=== PATIENT | male | born 1990 | race Caucasian/White ===

== ENCOUNTER 2019-02-07 01:03 | Emergency (ER) | payer SELFPAY ==
[~2019-02-07 01:03] MED LIST: IBU600 PO; LOM PO; LOR5/325 PO; MIRT-1 PO; MULT-1319 PO; OND4 PO; TRAZ50 PO
--- NOTE | 2019-02-07 01:07 | ER Report ---
History and Physical Time Seen By MD: 01:04 HPI/KIMBERLYN CHIEF COMPLAINT: Suicidal ideation HISTORY OF PRESENT ILLNESS: Patient is a 28-year-old male here with complaints of depression, alcohol intoxication, reports of taking 40-60 Tylenol tablets. Patient reports that he was having relationship issues, drink approximately 6-7 shots and subsequently took Tylenol in attempts to harm himself. Patient does have prior history of attempts at self-harm. Patient has been admitted previously to behavioral health services for similar actions. Patient reports that he took the Tylenol approximately 40 minutes prior to arrival. Patient did related that if he went home he would shoot himself with a gun. REVIEW OF SYSTEMS: Constitutional: No fever, no chills. Eyes: No discharge. ENT: No sore throat. Cardiovascular: No chest pain, no palpitations. Respiratory: No cough, no shortness of breath. Gastrointestinal: No abdominal pain, no vomiting. Genitourinary: No hematuria. Musculoskeletal: No back pain. Skin: No rashes. Neurological: No headache. Psych: Depression, SI, alcohol intoxication, reports of taking Tylenol in attempts to harm himself Allergies: Coded Allergies: No Known Allergies (Verified Allergy, Mild, 05/27/13) Home Meds Reported Medications Mirtazapine (REMERON) 15 Mg Tablet, 7.5-15 MG PO QHS, #30 2 Refills 01/17/17 Hx Smoking: Yes Smoking Status: Heavy Tobacco Smoker Exposure to Second Hand Smoke?: Yes Hx Substance Use Disorder: No Hx Alcohol Use: Yes Constitutional Vital Sign - Last 24 Hours 02/07/19 02/07/19 02/07/19 02/07/19 01:09 01:15 01:20 01:30 Temp 98.7 Pulse 59 Resp 19 B/P (MAP) 127/74 (91) 112/71 (85) 112/71 114/68 (83) Pulse Ox 91 O2 Delivery Room Air 02/07/19 02/07/19 02/07/19 02/07/19 01:33 01:45 02:00 02:15 Pulse 61 Resp 18 B/P (MAP) 114/79 (91) 114/76 (89) 114/75 (88) Pulse Ox 90 02/07/19 02/07/19 02/07/19 02/07/19 02:30 02:33 02:45 03:00 Pulse 64 Resp 24 B/P (MAP) 116/67 (83) 118/72 (87) 122/67 (85) Pulse Ox 92 02/07/19 02/07/19 02/07/19 02/07/19 03:05 03:10 03:15 03:30 Pulse 60 79 Resp 10 24 B/P (MAP) 127/69 (88) 130/72 (91) Pulse Ox 94 94 02/07/19 02/07/19 02/07/19 02/07/19 03:40 03:45 04:00 04:10 Pulse 64 64 Resp 22 15 B/P (MAP) 116/61 (79) 104/60 (75) Pulse Ox 99 90 02/07/19 02/07/19 04:15 04:20 Pulse 61 Resp 15 B/P (MAP) 107/54 (71) Pulse Ox 93 Intake and Output 02/06/19 02/06/19 02/07/19 15:02 23:02 07:02 Intake Total 2297.6 ml Output Total 800 ml Balance 1497.6 ml Physical Exam General Appearance: The patient is alert, has no immediate need for airway protection and no signs of toxicity. Intoxicated appearing, verbalizing that he took 40-60 Tylenol tablets after consuming 6-7 shots of alcohol. Eyes: Pupils equal and round no pallor or injection. ENT, Mouth: Mucous membranes are moist. Respiratory: There are no retractions, lungs are clear to auscultation. Cardiovascular: Regular rate and rhythm. [ ] Gastrointestinal: Abdomen is soft and non tender, no masses, bowel sounds normal. Neurological: Intoxicated appearing, moving all extremities Skin: Warm and dry, no rashes. Musculoskeletal: Neck is supple non tender. Extremities are nontender, nonswollen and have full range of motion. Psych: Verbalizing suicidal ideations, reports of taking Tylenol 40-60 tablets in an attempt to kill himself, reports of drinking 6-7 shots of alcohol DIFFERENTIAL DIAGNOSIS: After history and physical exam differential diagnosis was considered for depression, suicidal thoughts, drug overdose, secondary gain, alcohol abuse Medical Decision Making Data Points Result Diagram: 02/07/19 0115 02/07/19 0115 Laboratory Hematology Test 02/07/19 01:15 02/07/19 02:28 02/07/19 04:25 Red Blood Count 5.13 M/uL (4.00-5.60) Mean Corpuscular Volume 91.2 fL (80.0-96.0) Mean Corpuscular Hemoglobin 31.1 pg (26.0-33.0) Mean Corpuscular Hemoglobin Concent 34.1 g/dL (32.0-36.0) Red Cell Distribution Width 14.1 % (11.5-14.5) Mean Platelet Volume 8.6 fL (7.2-11.1) Neutrophils (%) (Auto) 61.5 % (39.4-72.5) Lymphocytes (%) (Auto) 29.4 % (17.6-49.6) Monocytes (%) (Auto) 7.2 % (4.1-12.4) Eosinophils (%) (Auto) 1.1 % (0.4-6.7) Basophils (%) (Auto) 0.8 % (0.3-1.4) Nucleated RBC Relative Count (auto) 0.0 /100WBC Neutrophils # (Auto) 4.6 K/uL (2.0-7.4) Lymphocytes # (Auto) 2.2 K/uL (1.3-3.6) Monocytes # (Auto) 0.5 K/uL (0.3-1.0) Eosinophils # (Auto) 0.1 K/uL (0.0-0.5) Basophils # (Auto) 0.1 K/uL (0.0-0.1) Nucleated RBC Absolute Count (auto) 0.00 K/uL Prothrombin Time 13.1 seconds (12.0-14.4) Prothromb Time International Ratio 0.99 Activated Partial Thromboplast Time 29 seconds (23-35) Sodium Level 144 mmol/L (137-145) Potassium Level 3.8 mmol/L (3.5-5.0) Chloride Level 108 mmol/L (98-107) Carbon Dioxide Level 22 mmol/L (22-30) Blood Urea Nitrogen 12 mg/dl (9-21) Creatinine 0.80 mg/dl (0.66-1.25) Glomerular Filtration Rate Calc > 60.0 Random Glucose 98 mg/dl (75-110) Calcium Level 8.9 mg/dl (8.4-10.2) Magnesium Level 2.2 mg/dl (1.7-2.2) Total Bilirubin 0.2 mg/dl (0.2-1.3) Aspartate Amino Transf (AST/SGOT) 27 U/L (0-35) Alanine Aminotransferase (ALT/SGPT) 33 U/L (0-56) Alkaline Phosphatase 69 U/L (0-126) Total Protein 6.9 g/dl (6.3-8.2) Albumin 4.6 g/dl (3.5-5.0) Lipase 112 U/L (23-300) Serum Alcohol 126 mg/dl Urine Color Yellow Urine Clarity Clear Urine pH 5.0 pH (4.8-9.5) Urine Specific [place]out[place] 1.012 Urine Protein Negative mg/dL (NEGATIVE) Urine Glucose (UA) Negative mg/dL (NEGATIVE) Urine Ketones Negative mg/dL (NEGATIVE) Urine Blood Negative (NEGATIVE) Urine Nitrite Negative (NEGATIVE) Urine Bilirubin Negative (NEGATIVE) Urine Urobilinogen Negative mg/dL (0.2-1.9) Urine Leukocyte Esterase Negative (NEGATIVE) Urine RBC None /HPF (0-2/HPF) Urine WBC 2 /HPF (0-5/HPF) Urine Squamous Epithelial Cells None /LPF (</=FEW) Urine Bacteria Negative /HPF (NONE-FEW) Urine Mucus Few /HPF (NONE-FEW) Urine Opiates Screen Negative Urine Barbiturates Screen Negative Ur Tricyclic Antidepressants Screen Negative Urine Phencyclidine Screen Negative Urine Amphetamines Screen Negative Urine Benzodiazepines Screen Negative Urine Cocaine Screen Negative Urine Cannabinoids Screen Positive Salicylates Level < 10 mg/L Salicylate Last Dose Date unknown Acetaminophen Level < 10 ug/ml Chemistry Test 02/07/19 01:15 02/07/19 02:28 02/07/19 04:25 White Blood Count 7.6 k/uL (4.5-11.0) Red Blood Count 5.13 M/uL (4.00-5.60) Hemoglobin 16.0 g/dL (14.0-18.0) Hematocrit 46.8 % (42.0-52.0) Mean Corpuscular Volume 91.2 fL (80.0-96.0) Mean Corpuscular Hemoglobin 31.1 pg (26.0-33.0) Mean Corpuscular Hemoglobin Concent 34.1 g/dL (32.0-36.0) Red Cell Distribution Width 14.1 % (11.5-14.5) Platelet Count 201 K/uL (150-450) Mean Platelet Volume 8.6 fL (7.2-11.1) Neutrophils (%) (Auto) 61.5 % (39.4-72.5) Lymphocytes (%) (Auto) 29.4 % (17.6-49.6) Monocytes (%) (Auto) 7.2 % (4.1-12.4) Eosinophils (%) (Auto) 1.1 % (0.4-6.7) Basophils (%) (Auto) 0.8 % (0.3-1.4) Nucleated RBC Relative Count (auto) 0.0 /100WBC Neutrophils # (Auto) 4.6 K/uL (2.0-7.4) Lymphocytes # (Auto) 2.2 K/uL (1.3-3.6) Monocytes # (Auto) 0.5 K/uL (0.3-1.0) Eosinophils # (Auto) 0.1 K/uL (0.0-0.5) Basophils # (Auto) 0.1 K/uL (0.0-0.1) Nucleated RBC Absolute Count (auto) 0.00 K/uL Prothrombin Time 13.1 seconds (12.0-14.4) Prothromb Time International Ratio 0.99 Activated Partial Thromboplast Time 29 seconds (23-35) Glomerular Filtration Rate Calc > 60.0 Calcium Level 8.9 mg/dl (8.4-10.2) Magnesium Level 2.2 mg/dl (1.7-2.2) Total Bilirubin 0.2 mg/dl (0.2-1.3) Aspartate Amino Transf (AST/SGOT) 27 U/L (0-35) Alanine Aminotransferase (ALT/SGPT) 33 U/L (0-56) Alkaline Phosphatase 69 U/L (0-126) Total Protein 6.9 g/dl (6.3-8.2) Albumin 4.6 g/dl (3.5-5.0) Lipase 112 U/L (23-300) Serum Alcohol 126 mg/dl Urine Color Yellow Urine Clarity Clear Urine pH 5.0 pH (4.8-9.5) Urine Specific [place] 1.012 Urine Protein Negative mg/dL (NEGATIVE) Urine Glucose (UA) Negative mg/dL (NEGATIVE) Urine Ketones Negative mg/dL (NEGATIVE) Urine Blood Negative (NEGATIVE) Urine Nitrite Negative (NEGATIVE) Urine Bilirubin Negative (NEGATIVE) Urine Urobilinogen Negative mg/dL (0.2-1.9) Urine Leukocyte Esterase Negative (NEGATIVE) Urine RBC None /HPF (0-2/HPF) Urine WBC 2 /HPF (0-5/HPF) Urine Squamous Epithelial Cells None /LPF (</=FEW) Urine Bacteria Negative /HPF (NONE-FEW) Urine Mucus Few /HPF (NONE-FEW) Urine Opiates Screen Negative Urine Barbiturates Screen Negative Ur Tricyclic Antidepressants Screen Negative Urine Phencyclidine Screen Negative Urine Amphetamines Screen Negative Urine Benzodiazepines Screen Negative Urine Cocaine Screen Negative Urine Cannabinoids Screen Positive Salicylates Level < 10 mg/L Salicylate Last Dose Date unknown Acetaminophen Level < 10 ug/ml Coagulation Test 02/07/19 01:15 Prothrombin Time 13.1 seconds Prothromb Time International Ratio 0.99 Activated Partial Thromboplast Time 29 seconds Toxicology Test 02/07/19 01:15 02/07/19 02:28 02/07/19 04:25 Serum Alcohol 126 mg/dl Urine Opiates Screen Negative Urine Barbiturates Screen Negative Ur Tricyclic Antidepressants Screen Negative Urine Phencyclidine Screen Negative Urine Amphetamines Screen Negative Urine Benzodiazepines Screen Negative Urine Cocaine Screen Negative Urine Cannabinoids Screen Positive Salicylates Level < 10 mg/L Salicylate Last Dose Date unknown Acetaminophen Level < 10 ug/ml Urinalysis Test 02/07/19 02:28 Urine Color Yellow Urine Clarity Clear Urine pH 5.0 pH (4.8-9.5) Urine Specific [place] 1.012 Urine Protein Negative mg/dL (NEGATIVE) Urine Glucose (UA) Negative mg/dL (NEGATIVE) Urine Ketones Negative mg/dL (NEGATIVE) Urine Blood Negative (NEGATIVE) Urine Nitrite Negative (NEGATIVE) Urine Bilirubin Negative (NEGATIVE) Urine Urobilinogen Negative mg/dL (0.2-1.9) Urine Leukocyte Esterase Negative (NEGATIVE) Urine RBC None /HPF (0-2/HPF) Urine WBC 2 /HPF (0-5/HPF) Urine Squamous Epithelial Cells None /LPF (</=FEW) Urine Bacteria Negative /HPF (NONE-FEW) Urine Mucus Few /HPF (NONE-FEW) EKG/Imaging EKG Interpretation PATIENT NAME: MAKENNA JOHNSTON : [id number] MR: [id number] V: [id number] EXAM DATE: ORDERING PHYSICIAN: PARAM CHAVEZ TECHNOLOGIST: TRICE Mcdonnell Reason : DRUG OD Blood Pressure : / mmHG Vent. Rate : 054 BPM Atrial Rate : 054 BPM P-R Int : 138 ms QRS Dur : 122 ms QT Int : 416 ms P-R-T Axes : 056 072 054 degrees QTc Int : 394 ms Sinus bradycardia Probable left atrial enlargement Nonspecific interventricular conduction delay ST-T changes through anterior precordial leads Abnormal ECG No previous ECGs available Confirmed by LEELA JOHNSON ([id number]) on 02/07/2019 5:08:22 AM Referred By: Confirmed By:LEELA JOHNSON ED Course/Re-evaluation ED Course Patient is a 28-year-old male here with complaints of suicidal ideations, alcohol intoxication, reports of taking 40-60 Tylenol tabs and attempts at self- harm. Initial Tylenol level was found to be negative as well as salicylate level was negative. Alcohol level is 126. Due to the patient's report of taking such high quantities of Tylenol at 40 minutes prior to arrival, patient was given N- acetylcysteine loading dose, activated charcoal. Repeat Tylenol level at 4 hours postingestion was also negative soap patient likely was not being truthful about his ingestion. Patient repeatedly verbalized that he did plan on killing himself and was upset that he had not done so. He also verbalized to the nurse that he would likely go home and shoot himself with his firearm. I discussed the patient with Dr. Carreon with behavioral services and he accepted the patient to his service. Patient signed in voluntarily at this time. Patient was hemodynamically stable throughout course. Decision to Disposition Date: Feb 07, 2019 Decision to Disposition Time: 05:47 Depart Departure Latest Vital Signs Vital Signs Date Time Temp Pulse Resp B/P (MAP) Pulse Ox O2 Delivery O2 Flow Rate FiO2 02/07/19 04:20 61 15 93 02/07/19 04:15 107/54 (71) 02/07/19 01:20 98.7 Room Air Impression: Primary Impression: Depression Additional Impressions: Suicidal ideation Alcohol abuse Condition: Condition Unchanged Disposition: XFER TO [facility] Problem Qualifiers PARAM CHAVEZ DO Feb 07, 2019 01:07
[2019-02-07] MEDS ORDERED: NS(*) 0.9% 1000 ML BAG 1,000 ML IV ONE ×2 (01:27→01:30)
[2019-02-07] MEDS ORDERED: ACETYLCYS IV ONE ×3 (01:30→05:30)
[2019-02-07] MEDS ORDERED: D5W IV ONE ×3 (01:30→05:30)
[2019-02-07] MEDS ORDERED: ACTIVATED CHAR/SORB 25GM/120ML PO ONE (01:30)
[2019-02-07 01:32] LABS: PLATELET COUNT, AUTOMATED 201 K/uL (150-450)
[2019-02-07 01:35] LABS: INR 0.99
--- NOTE | 2019-02-07 01:52 | EKG ---
[place] [facility] [place] NAME: MAKENNA JOHNSTON : [id number] MR: [id number] V: [id number] EXAM DATE: ORDERING PHYSICIAN: PARAM CHAVEZ TECHNOLOGIST: TRICE Test Reason : DRUG OD Blood Pressure : / mmHG Vent. Rate : 054 BPM Atrial Rate : 054 BPM P-R Int : 138 ms QRS Dur : 122 ms QT Int : 416 ms P-R-T Axes : 056 072 054 degrees QTc Int : 394 ms Sinus bradycardia Probable left atrial enlargement Nonspecific interventricular conduction delay ST-T changes through anterior precordial leads Abnormal ECG No previous ECGs available Confirmed by LEELA JOHNSON ([id number]) on 02/07/2019 5:08:22 AM Referred By: Confirmed By:LEELA JOHNSON
[2019-02-07] MEDS ORDERED: D5W(*) 250 ML BAG 250 ML ONE (02:02)
[2019-02-07] MEDS ORDERED: PROMETHAZINE 25 MG/ML 1 ML AMP IVP ONE (03:15)
[2019-02-07 05:45] VITALS: BP 98/57
--- NOTE | 2019-02-07 06:18 | BHS - Psychiatric Evaluation ---
ER - Title 25 MHE Evaluation Title 25 Evaluation Patient Detained By: Physician Referral Source: Self Date Patient Detained: Feb 07, 2019 Time Patient Detained: 06:09 Date Shelter Expires: Feb 12, 2019 Time Shelter Expires: 06:09 Legal Status: Police Hold: No Legal Status: Residence: State Resident Assessment Data Provided By: Patient, Family Member(s), Friend(s) HPI/ROS: Please see history of present illness. Patient is a 28-year-old male here with alcohol intoxication, reported taking 40-60 Tylenol attempts to harm himself, threats of shooting himself with a gun if he went home. Patient was evaluated and initially was going to be admitted to behavioral health services on voluntary admission however patient later changed his mind and eloped from the emergency department prompting police to bring him back in after emergency detainment was filed by myself. Admit due to SI or Attempt: Yes Suicide Plan: Has Plan with Access Current Suicide Plan Overdosing on Tylenol or shooting himself with a firearm which he has access to Alcohol or Drugs Involved: Yes Current Intoxication Info: Alcohol intoxication, Tylenol negative Emergency Medical/Psych Tx: Please see note Is Patient Info Reliable: No Is Collateral Info Reliable: Yes Mental Status Exam General Appearance: Unkept Speech: Slurred, Garbled Mood: Dysthmic/Depressed Affect: Flat, Withdrawn Thought Content: Suicidal Ideation Cognition: Alert & Oriented-Person, Alert & Oriented-Place, Alert & Oriented- Time, Nleqs-Entljknx-Mfhbczjbr Memory: Recent Insight Judgment: Poor Hallucinations: Denies Delusions: Denies Current Risk & History Current Dangerous Risk Assessm: Current Suicide Ideation, Current Suicide Attempt Past Dangerous Risk Assessm: Suicide Ideation-last 6mo, Self-Injurious Behaviors Previous Suicide Attempt: Past - Low Lethality Previous Psychiatric Illness: Yes Previous Psychiatric Treatment: Yes Risk Assessment & Disposition Evaluated Risk Assessment: Yes Impression: Primary Impression: Depression Additional Impressions: Alcohol abuse Suicidal ideation Meets Mental Illness Req.: Yes Meets Dangerousness Req.: Yes Emergency Shelter to be: Upheld Date of Decision: Feb 07, 2019 Time of Decision: 06:15 Patient is Medically Stable at: Yes Disposition: S Problem Qualifiers PARAM CHAVEZ DO Feb 07, 2019 06:18
[2019-02-07] MEDS ORDERED: OLANZapine 10 MG VIAL IM ONLY ONE (06:38)
[2019-02-07] MEDS ORDERED: diphenhydrAMINE 50 MG/ML VIAL ONE (06:38)
[2019-02-07] MEDS ORDERED: LORazepam 2 MG/ML VIAL ONE (06:38)
== END 2019-02-07 06:51 ==
LOC: ER 01:24
DX: F32.9 Major depressive disorder, single episode, unspecified (principal); R45.851 Suicidal ideations; F10.120 Alcohol abuse with intoxication, uncomplicated; Y90.6 Blood alcohol level of 120-199 mg/100 ml
CPT/HCPCS: 36415; 80305; 80320; 80329; 81001; 83690; 83735; 84443; 85025; 85610; 85730; 93005; 96361; 96365; 96368; 96372; 96375; 99284; J0132; J1200; J2060; J2550; J3490; J7030; J7060; 82040; 82247; 82310; 82374; 82435; 82565; 82947; 84075; 84132; 84155; 84295; 84450; 84460; 84520

== ENCOUNTER 2019-02-07 05:07 | Inpatient (IN) | payer SELFPAY ==
[2019-02-07] MEDS ORDERED: MAG HYD/AL HYD/SIMETH 30ML UDC PO PRN (06:10)
[2019-02-07] MEDS ORDERED: NICOTINE INH SYSTEM 10 MG/INH INH PRN (06:10)
[2019-02-07] MEDS: MULTIVITAMINS TAB PO SCH (08:33)
--- NOTE | 2019-02-07 08:44 | EKG ---
FACILITY: [facility] PATIENT NAME: MAKENNA JOHNSTON : [id number] MR: [id number] V: [id number] EXAM DATE: ORDERING PHYSICIAN: TOÑA WHITE TECHNOLOGIST: Test Reason : antipsychotic medications Blood Pressure : / mmHG Vent. Rate : 066 BPM Atrial Rate : 072 BPM P-R Int : 140 ms QRS Dur : 092 ms QT Int : 372 ms P-R-T Axes : 262 073 062 degrees QTc Int : 389 ms Unusual P axis, possible ectopic atrial rhythm No ST-T abnormalities When compared with ECG of 07-FEB-2019 01:38, Ectopic atrial rhythm has replaced Sinus rhythm Non-specific change in ST segment in Anterior leads T wave inversion no longer evident in Anterior leads Confirmed by ALLISON LUCERO ([id number]) on 02/07/2019 8:49:47 PM Referred By: Confirmed By:ALLISON LUCERO
[2019-02-07 11:11] LABS: PLATELET COUNT, AUTOMATED 182 K/uL (150-450)
[2019-02-07 12:44] VITALS: BP 81/43
[2019-02-07] MEDS ORDERED: diphenhydrAMINE 50 MG/ML VIAL IM PRN (15:50)
[2019-02-07] MEDS ORDERED: OLANZapine 10 MG VIAL IM ONLY PRN (15:50)
[2019-02-07] MEDS ORDERED: WATER STERILE 10 ML VIAL IM ONLY PRN (15:50)
[2019-02-07] MEDS ORDERED: LORazepam 2 MG/ML VIAL IM PRN (15:50)
--- NOTE | 2019-02-07 16:17 | SCHAAF H&P ---
DATE OF ADMISSION: February 07, 2019 ATTENDING PHYSICIAN Sim Carreon MD Patient was seen at approximately 0800 hours on the morning of 07 February 2019 for note concerning this dictation. PRESENTING PROBLEM/CHIEF COMPLAINT Patient was admitted early in the morning of February 07, 2019, to [facility] Room after presenting and stating he had overdosed and was intoxicated. HISTORY OF PRESENT ILLNESS Initial interview on the psychiatric unit could not be obtained on this patient, who is chemically restrained after becoming very abusive in the Emergency Room. Patient indicating he would go home and kill himself with a gun. This resulted in emergency detainment. Further escalations of behaviors resulted in chemical restraint. Patient unable to be effectively interviewed on the unit. Patient's family was contacted. Patient's lab values that were repeated several times did not seem to indicate an overdose on Tylenol, acetaminophen, or ibuprofen as patient had stated. Patient was intoxicated at time of admission. Patient's family members were contacted, who thought that this admission and decompensation were a result of a breakup with significant other. Will continue to evaluate. Patient again unable to be interviewed at time of this dictation due to chemical restraint. MENTAL HEALTH HISTORY It was noted that patient was here on the unit from January 16, 2017, to January 17, 2017, and he previous to that was a patient on the Behavioral Health Unit in 2007 for an intentional overdose at age 17. He participated in anger counseling at [facility] with Cori Goldberg in the past as well. He has had a previous overdose of ibuprofen in a suicide attempt prior to 2007 with Behavioral Health admission. FAMILY PSYCHIATRIC HISTORY Mother, brother, aunts, and uncles have been diagnosed with depression. Maternal grandfather with alcohol use disorder. Paternal grandfather committed suicide. Brother with previous history of oppositional/defiant disorder. PAST MEDICAL HISTORY Previous to this overdose, there were no known allergies, and patient was thought to be in overall good health. SOCIAL HISTORY Patient was born in [place], [place]. He moved to [place] at age 3. His parents were at the time of his . They remain , both practicing law. He has been employed at [employer] in the past. It is unknown if he is working now. He dropped out of high school, but obtained a GED through [employer]. Also has an associates degree in general science from [employer]. Patient is believed to have been living with his brother; however, this is not sure at this time. In the past, he has reported a good support system with his family. He also had one half brother and one half sister. LEGAL HISTORY Patient had on previous admission denied any legal history and denied a history of physical, emotional, or sexual abuse growing up. SUBSTANCE ABUSE HISTORY Patient reported he binge drank from ages 16 to 19. He did have episodes where he blacked out in the past. Patient has smoked cigarettes in the past, and he has smoked cannabis seemingly heavily in the past for many years. He has tried mushrooms in the past. Denied use of methamphetamine or heroin on previous admission. He had snorted Adderall on history obtained from previous admission in the past. Denied a history of IV drug abuse then, but took opium in pure form in the past. PHYSICAL EXAMINATION AT TIME OF ADMISSION Please see emergency room note. Notable for: GENERAL: Sedated 28-year-old male after requiring chemical restraints. VITAL SIGNS: At the time of admission to the hospital included temperature 98.7, pulse 59, respiratory rate 19, blood pressure 112/71, pulse oximetry 91% on room air. LABORATORY DATA CBC unremarkable. CMP unremarkable. TSH 3.06. Lipase 112. Coagulation panel unremarkable. Urinalysis unremarkable. Toxicology screen positive for cannabis, but notably negative for salicylates and acetaminophen. These labs were repeated as well. Serum alcohol 126 upon admission. MENTAL STATUS EXAMINATION GENERAL APPEARANCE, BEHAVIOR, AND ATTITUDE: Patient lethargic, responds to stimuli after receiving chemical restraint. Patient breathing normally, resting peacefully. SPEECH: Quiet and soft. MOOD: Unable to assess. AFFECT: Neutral. THOUGHT PROCESSES: Unable to fully assess. THOUGHT CONTENT: Unable to fully assess. Patient very agitated in the Emergency Room prior to admission and verbalizing suicidal ideation with intent. SENSORIUM: Currently clouded after chemical restraint. COGNITION: Unable to fully assess. MEMORY: Unable to fully assess. INTELLIGENCE: Average based on previous knowledge of this patient. INSIGHT AND JUDGMENT: Considered currently impaired secondary to overwhelming stressor and status post suicide attempt and ongoing verbalization of plan. ASSESSMENT This is a 28-year-old male who has been on the unit as recently as 2017. According to patient's family members at this time, patient's current mental state appears to be in relation to breakup with significant other. Will continue to evaluate and monitor for any ingestion of toxins. DIAGNOSES 1. Alcohol intoxication. 2. Cannabis use disorder. 3. Major depression. 4. Recurrence of emergency room status post overdose. PLAN 1. Admit to the unit. 2. Necessary precautions will be implemented. 3. Patient will participate in individual and group therapy. 4. Medications will be administered and titrated accordingly. 5. Collateral information to be obtained as necessary. 6. Estimated length of stay unknown, estimate of five to seven days. Patient is under an emergency detainment at this time. [facility]
[2019-02-07 17:11] VITALS: BP 108/59
--- NOTE | 2019-02-07 20:41 | BHS - Psychiatric Evaluation ---
ER - Title 25 MHE Evaluation Title 25 Evaluation Patient Detained By: Physician (Dr. Ricardo) Referral Source: Professional: Dr. Ricardo Date Patient Detained: Feb 07, 2019 Time Patient Detained: 06: Date Halfway Expires: Feb 13, 2019 Time Halfway Expires: : Legal Status: Police Hold: No Legal Status: Residence: [facility] Resident, State Resident Assessment Data Provided By: Patient, Family Member(s) (Talked with patient mother and brother), Other Source (Patient Electronic Medical Record) HPI/ROS: Patient came to the ER and told the ER physician, Dr Ricardo that he had taken a bottle of pills in an intentional overdose. The patient initally agreed to come to [facility]. The patient stated to the DRCharu that if darnell went home he was going to shoot himself. The patient then changed his mind about coming voluntarily to [facility]. Then his physician detained him for his safety. Admit due to SI or Attempt: Yes Suicide Plan: Has Plan with Access Alcohol or Drugs Involved: Yes Is Patient Info Reliable: No (Patient is angry and refusing to give information about himself. ) Is Collateral Info Reliable: Yes Current Home Psych Meds: No patient medications in patient record Mental Status Exam General Appearance: Unkept Speech: Clear; No Normal Volume (Yelling at times) Mood: Dysthmic/Depressed Affect: Sad Thought Process: Goal Directed (Is angry and blaming others, says,"I did everything and nnothing anybody says works.") Thought Content: Suicidal Ideation Memory: Immediate Insight Judgment: Poor Sleep: Hypersomnia Hallucinations: Denies Delusions: Denies Current Risk & History Current Dangerous Risk Assessm: Current Suicide Ideation (States that he "doesn't care about living.") Past Dangerous Risk Assessm: Suicide Ideation-last 6mo, Other (Patient mother says he has been suicidal like this another time in not too distant past) Previous Suicide Attempt: Past - Low Lethality Previous Psychiatric Illness: Yes Previous Psychiatric Treatment: Yes Previous Treatment Description Patient was treated at [facility] for an intentional overdose January 2017 Risk Assessment & Disposition Evaluated Risk Assessment: Risk is high. Patient is impulsive. This is second intentional overdose that patient has experienced. Patient is not demonstrating the capacity to be safe with outpatient supports. He needs the safety and stabilization of a psychiatric hospitalization. Impression: Primary Impression: Persistent depressive disorder Additional Impressions: Suicidal ideation Depression Meets Mental Illness Req.: Yes Meets Dangerousness Req.: Yes Emergency Halfway to be: Upheld Decision Comment: Risk is high. Patient is impulsive. This is second intentional overdose that patient has experienced. Patient is not demonstrating the capacity to be safe with outpatient supports. He needs the safety and stabilization of a psychiatric hospitalization. Date of Decision: Feb 07, 2019 Time of Decision: 20:39 Patient is Medically Stable at: Yes Disposition: [facility] Problem Qualifiers BABATUNDE ALFARO [facility] Feb 07, 2019 20:41
--- NOTE | 2019-02-07 21:42 | NUR ---
At 2099 the patient began slamming his fists into the counter in the bathroom and possibly the wall . This nurse went in spoke patient asking not to hit the counters. Upon inspection no damage was noted. 2114 staff again heard elaina went back and explained to patient that he would not be allowed to destroy property and we just wanted him to be safe he told the tech "If you can't get me out of here then fuck off." This nurse went in and offered the patient medication to help him de-escalate , patient refused. 2129 elaina was heard again, nurse and tech entered patient had pulled some weather stripping loose. This nurse talked with patient told him he would see the MD in the morning and have an opportunity to discuss his situation, Again offered patient meds, he replied "Only if its something that will kill me." Patient has been laying down since on his bed staff continues to monitor. Addendum: 02/07/19 at 2201 by HENRIETTA WESTON RN Weather stripping was removed from room
[2019-02-07 22:13] VITALS: BP 106/53
[2019-02-08] MEDS: MULTIVITAMINS TAB PO SCH ×2 (08:04→08:30)
--- NOTE | 2019-02-08 12:43 | BHS Progress Note ---
S - Subjective Progress Notes Subjective Detained patient yelling "fuck you" to staff, and criticizing staff members and facility in general, know to be willfully engaging in destruction of hospital property and engaging in self harm by tying weatherstripping he removed from window around his neck. Patient had to be moved to more restrictive room. Will continue to try to open communication with this patient. Will encourage parents to visit as well. Suicidal Ideation: Ongoing Homicidal Ideation: None [facility] - Objective Physical Exam Vital Signs Hematology Test 02/07/19 11:03 Red Blood Count 4.78 M/uL (4.00-5.60) Mean Corpuscular Volume 91.3 fL (80.0-96.0) Mean Corpuscular Hemoglobin 30.9 pg (26.0-33.0) Mean Corpuscular Hemoglobin Concent 33.8 g/dL (32.0-36.0) Red Cell Distribution Width 14.0 % (11.5-14.5) Mean Platelet Volume 8.0 fL (7.2-11.1) Neutrophils (%) (Auto) 57.8 % (39.4-72.5) Lymphocytes (%) (Auto) 32.2 % (17.6-49.6) Monocytes (%) (Auto) 8.0 % (4.1-12.4) Eosinophils (%) (Auto) 1.2 % (0.4-6.7) Basophils (%) (Auto) 0.8 % (0.3-1.4) Nucleated RBC Relative Count (auto) 0.1 /100WBC Neutrophils # (Auto) 3.1 K/uL (2.0-7.4) Lymphocytes # (Auto) 1.7 K/uL (1.3-3.6) Monocytes # (Auto) 0.4 K/uL (0.3-1.0) Eosinophils # (Auto) 0.1 K/uL (0.0-0.5) Basophils # (Auto) 0.0 K/uL (0.0-0.1) Nucleated RBC Absolute Count (auto) 0.00 K/uL Sodium Level 143 mmol/L (137-145) Potassium Level 4.0 mmol/L (3.5-5.0) Chloride Level 110 mmol/L (98-107) Carbon Dioxide Level 24 mmol/L (22-30) Blood Urea Nitrogen 8 mg/dl (9-21) Creatinine 0.60 mg/dl (0.66-1.25) Glomerular Filtration Rate Calc > 60.0 Random Glucose 84 mg/dl (75-110) Lactate 1.3 mmol/L (0.7-2.1) Calcium Level 8.9 mg/dl (8.4-10.2) Total Bilirubin 0.5 mg/dl (0.2-1.3) Aspartate Amino Transf (AST/SGOT) 23 U/L (0-35) Alanine Aminotransferase (ALT/SGPT) 31 U/L (0-56) Alkaline Phosphatase 46 U/L (0-126) Total Protein 5.4 g/dl (6.3-8.2) Albumin 3.4 g/dl (3.5-5.0) Salicylates Level < 10 mg/L Salicylate Last Dose Date unk Acetaminophen Level < 10 ug/ml Chemistry Test 02/07/19 11:03 White Blood Count 5.4 k/uL (4.5-11.0) Red Blood Count 4.78 M/uL (4.00-5.60) Hemoglobin 14.7 g/dL (14.0-18.0) Hematocrit 43.6 % (42.0-52.0) Mean Corpuscular Volume 91.3 fL (80.0-96.0) Mean Corpuscular Hemoglobin 30.9 pg (26.0-33.0) Mean Corpuscular Hemoglobin Concent 33.8 g/dL (32.0-36.0) Red Cell Distribution Width 14.0 % (11.5-14.5) Platelet Count 182 K/uL (150-450) Mean Platelet Volume 8.0 fL (7.2-11.1) Neutrophils (%) (Auto) 57.8 % (39.4-72.5) Lymphocytes (%) (Auto) 32.2 % (17.6-49.6) Monocytes (%) (Auto) 8.0 % (4.1-12.4) Eosinophils (%) (Auto) 1.2 % (0.4-6.7) Basophils (%) (Auto) 0.8 % (0.3-1.4) Nucleated RBC Relative Count (auto) 0.1 /100WBC Neutrophils # (Auto) 3.1 K/uL (2.0-7.4) Lymphocytes # (Auto) 1.7 K/uL (1.3-3.6) Monocytes # (Auto) 0.4 K/uL (0.3-1.0) Eosinophils # (Auto) 0.1 K/uL (0.0-0.5) Basophils # (Auto) 0.0 K/uL (0.0-0.1) Nucleated RBC Absolute Count (auto) 0.00 K/uL Glomerular Filtration Rate Calc > 60.0 Lactate 1.3 mmol/L (0.7-2.1) Calcium Level 8.9 mg/dl (8.4-10.2) Total Bilirubin 0.5 mg/dl (0.2-1.3) Aspartate Amino Transf (AST/SGOT) 23 U/L (0-35) Alanine Aminotransferase (ALT/SGPT) 31 U/L (0-56) Alkaline Phosphatase 46 U/L (0-126) Total Protein 5.4 g/dl (6.3-8.2) Albumin 3.4 g/dl (3.5-5.0) Salicylates Level < 10 mg/L Salicylate Last Dose Date unk Acetaminophen Level < 10 ug/ml Toxicology Test 02/07/19 11:03 Salicylates Level < 10 mg/L Salicylate Last Dose Date unk Acetaminophen Level < 10 ug/ml Muscle Strength and Tone: WNL Gait and Station: Steady [facility] Medications Reviewed: Side Effects, Benefits of Medication, Risks Allergies Reviewed: Yes Mental Status Exam General Appearance: No Casual, No Well Groomed, No Good Eye Contact, No Cooperative, No Polite, No Good Interaction, No Unkept, No Tearful; Psychomotor Agitation; No Psychomotor Retardation, No Bizarre Mannerisms, No Tics Speech: Clear; No Normal Volume (Yelling at times), No Garbled, No Rambling; Inappropriate Mood: Dysthmic/Depressed (angry) Affect: No Full and Appropriate, No Sad; Agitated Thought Process: No Organized, No Logical; Goal Directed (Is angry and blaming others, says,"I did everything and nnothing anybody says works."); No Loose Associations Thought Content: Suicidal Ideation (ongoing); No Homicidal Ideation, No Delusions, No Auditory Halllucinations, No Visual Hallucinations, No Thought Broadcasting, No Ideas of Reference, No Obsessions, No Compulsions Sensorium: Clear Cognition: Alert & Oriented-Person, Alert & Oriented-Place, Alert & Oriented- Time, Khdty-Ewzayaec-Tegpxtbgc Memory: Immediate, Recent, Remote Intelligence: Average Insight Judgment: Poor (currently) Result Diagram: 02/07/19 1103 02/07/19 1103 [facility] Assessment and Plan [id number] Encounter Date: Feb 08, 2019 Ciio-[id number] Encounter Time: 09:30 [facility] Plan: Necessary Precautions, Individual/Group Therapy, Admin/Titrate Meds, Educate Patient Problems: (1) Cannabis use disorder, severe, in controlled environment Status: Chronic (2) Persistent depressive disorder Optional Permanent Comment: verses major depression Last Edited By: Toña White on Feb 08, 2019 12:41 Status: Chronic (3) Alcohol abuse Status: Acute Condition 1. continue treatment. 2.. encourage compliance. 3. family meeting. TOÑA WHITE MD Feb 08, 2019 12:43
--- NOTE | 2019-02-08 12:46 | NUR ---
ON [id number] AT ABOUT 0930 HRS WHEY DEPARTMENT OPERATOR (PT) DEBBIE ALERTED ME THAT MAKENNA WAS TRYING TO TEAR THE NIGHT STAND OFF OF THE WALL IN ROOM 3322. WE WENT IN AND SPOKE WITH MAKENNA. HE WAS VERY HESITANT TO ENGAGE WITH US AND WOULD AT TIMES CURSE US AND TELL US WE WERE RUINING HIS LIFE. AFTER SPEAKING WITH MAKENNA FOR ABOUT 10 MINUTES, WE LEFT AND HE WENT TO LIE DOWN IN BED. ABOUT 15 MINUTES LATER PT DEBBIE TOLD ME MAKENNA WAS ACTING OUT IN HIS ROOM AGAIN. HE HAD TORN SOME WEATHER STRIPPING OUT OF THE WINDOW. WHEN WE WENT INTO HIS ROOM I SAW A LOOP OF WEATHER STRIPPING PROTRUDING FROM UNDER HIS BLANKET. I TOOK THE WEATHER STRIPPING. I NOTICED MAKENNA AND ABOUT FOUR REDDENED HORIZONTAL LINES AROUND THE CIRCUMFERENCE OF HIS NECK. IT SEEMED MAKENNA HAD ATTEMPTED TO USE THE WEATHER STRIPPING A LIGATURE. WE DECIDED WE NEEDED TO MOVE MAKENNA TO UNIT C WHERE HE COULD BE MONITORED MORE CLOSELY. THIS WAS ACCOMPLISHED WITHOUT FURTHER INCIDENT. DR. WHITE WAS NOTIFIED OF THE INCIDENT SOON AFTER WE MOVED MAKENNA INTO UNIT C. MAKENNA SEEMED TO BE IN NO DISTRESS FROM HIS APPARENT ATTEMPT TO CHOKE HIMSELF. HE WAS MONITORED CLOSELY FOR THE REST OF THE SHIFT. A NOTE WAS MADE ON THE NURSING REPORT TO ALERT OTHER STAFF OF THE INCIDENT.
[2019-02-08 22:01] VITALS: BP 129/78
[2019-02-09] MEDS: MULTIVITAMINS TAB PO SCH (08:09)
[2019-02-09 13:10] VITALS: BP 124/40
--- NOTE | 2019-02-09 13:44 | BHS Progress Note ---
[facility] - Subjective Progress Notes Subjective Patient engaging in para-suicidal behaviors yesterday by wrapping window seal around his neck that he tore out of window in his room. Patient moved to segregation room, notably more cooperative this AM, not engaging in quite as much splitting behavior with his parents, regarding care here at the hospital. Parents noted a=to be very supportive as well as brother. Will continue to encourage patient to be open to treatment. Suicidal Ideation: Resolving Homicidal Ideation: None [facility] - Objective Physical Exam Vital Signs Vital Signs Date Time Temp Pulse Resp B/P (MAP) Pulse Ox O2 Delivery O2 Flow Rate FiO2 02/08/19 22:01 97.4 72 129/78 (95) 95 Room Air Muscle Strength and Tone: WNL Gait and Station: Steady [facility] Medications Reviewed: Side Effects, Benefits of Medication, Risks Allergies Reviewed: Yes Mental Status Exam General Appearance: No Casual, No Well Groomed, No Good Eye Contact, No Cooperative, No Polite, No Good Interaction, No Unkept, No Tearful; Psychomotor Agitation; No Psychomotor Retardation, No Bizarre Mannerisms, No Tics Speech: Clear; No Normal Volume (Yelling at times), No Garbled, No Rambling; Inappropriate Mood: Dysthmic/Depressed (angry) Affect: No Full and Appropriate, No Sad; Agitated Thought Process: No Organized, No Logical; Goal Directed (Is angry and blaming others, says,"I did everything and nnothing anybody says works." some resolution today ); No Loose Associations Thought Content: Suicidal Ideation (ongoing); No Homicidal Ideation, No Delusions, No Auditory Halllucinations, No Visual Hallucinations, No Thought Broadcasting, No Ideas of Reference, No Obsessions, No Compulsions Sensorium: Clear Cognition: Alert & Oriented-Person, Alert & Oriented-Place, Alert & Oriented- Time, Uexoz-Xpjcqalc-Spxtkowxn Memory: Immediate, Recent, Remote Intelligence: Average Insight Judgment: Poor (currently) Result Diagram: 02/07/19 1103 02/07/19 1103 [facility] Assessment and Plan Ltqd-pe-Snap Encounter Date: Feb 09, 2019 Tlvh-[id number] Encounter Time: 09:30 [facility] Plan: Necessary Precautions, Individual/Group Therapy, Admin/Titrate Meds, Educate Patient Multpiple Antipsychotics Used: No Problems: (1) Cannabis use disorder, severe, in controlled environment Status: Chronic (2) Persistent depressive disorder Optional Permanent Comment: verses major depression Last Edited By: Toña White on Feb 08, 2019 12:41 Status: Chronic (3) Alcohol abuse Status: Acute Condition 1. continue to encourage cooperation with care. 2. start to develop outpatient plan. TOÑA WHITE MD Feb 09, 2019 13:44
[2019-02-09 21:17] VITALS: BP 128/62
[2019-02-09] MEDS ORDERED: IBUPROFEN 200 MG TAB PO PRN (22:55)
[2019-02-10 05:47] VITALS: BP 93/62
[2019-02-10] MEDS: MULTIVITAMINS TAB PO SCH (08:45)
--- NOTE | 2019-02-10 09:34 | BHS Progress Note ---
S - Subjective Progress Notes Subjective "I'm feeling better. I'm feeling bad about all of the things I've caused. I'm thinking of getting on the path to getting my life together." Has + support system, brother, parents Rating depression and anxiety 3/10 (10 worst) Minimal anger "I've got pretty good handle on that." Slept well last night, had vivid dreams, states @ home sleeps only 4-5 hours,insufficient sleep Smiling, poor eye contact Daily cannabis use, smokes 2x per day, discuss abstaining and/or decreasing use Suicidal Ideation: None Homicidal Ideation: None S - Objective Physical Exam Vital Signs Vital Signs Date Time Temp Pulse Resp B/P (MAP) Pulse Ox O2 Delivery O2 Flow Rate FiO2 02/10/19 05:47 97.6 69 93/62 (72) 96 Room Air 02/09/19 13:10 16 Deferred Medications (Trade) Dose Ordered Sig/Kiana Route PRN Reason Start Time Stop Time Status Last Admin Dose Admin Ibuprofen (Motrin (*) 200 Mg Tab (Or Equiv)) 400 mg Q6H PRN PO PAIN 02/09/19 22:55 03/11/19 22:54 02/09/19 23:10 Muscle Strength and Tone: WNL Gait and Station: Steady [facility] Medications Reviewed: Side Effects, Benefits of Medication, Risks Allergies Reviewed: Yes Mental Status Exam General Appearance: Casual, Well Groomed, Good Eye Contact, Cooperative, Polite, Good Interaction; No Unkept, No Tearful, No Psychomotor Agitation, No Psychomotor Retardation, No Bizarre Mannerisms, No Tics Speech: Clear, Spontaneous, Normal Rate, Normal Volume, Normal Tone; No Garbled, No Rambling, No Inappropriate Mood: Dysthmic/Depressed (depression 10/15) Affect: Full and Appropriate, Calm; No Sad, No Agitated Thought Process: Organized, Logical, Goal Directed, Loose Associations Thought Content: No Suicidal Ideation, No Homicidal Ideation, No Delusions, No Auditory Halllucinations, No Visual Hallucinations, No Thought Broadcasting, No Ideas of Reference, No Obsessions, No Compulsions Sensorium: Clear Cognition: Alert & Oriented-Person, Alert & Oriented-Place, Alert & Oriented- Time, Shiin-Sgdtfnpp-Hsuknuhje Memory: Immediate, Recent, Remote Intelligence: Average Insight Judgment: Intact, Appropriate; No Poor; Fair Result Diagram: 02/07/19 1103 02/07/19 1103 Microbiology Laboratory Tests 02/07/19 11:03 Laboratory Tests 02/07/19 11:03: White Blood Count 5.4, Red Blood Count 4.78, Hemoglobin 14.7, Hematocrit 43.6, Mean Corpuscular Volume 91.3, Mean Corpuscular Hemoglobin 30.9, Mean Corpuscular Hemoglobin Concent 33.8, Red Cell Distribution Width 14.0, Platelet Count 182, Mean Platelet Volume 8.0, Neutrophils (%) (Auto) 57.8, Lymphocytes (%) (Auto) 32.2, Monocytes (%) (Auto) 8.0, Eosinophils (%) (Auto) 1.2, Basophils (%) (Auto) 0.8, Nucleated RBC Relative Count (auto) 0.1, Neutrophils # (Auto) 3.1, Lymphocytes # (Auto) 1.7, Monocytes # (Auto) 0.4, Eosinophils # (Auto) 0.1, Basophils # (Auto) 0.0, Nucleated RBC Absolute Count (auto) 0.00, Sodium Level 143, Potassium Level 4.0, Chloride Level 110, Carbon Dioxide Level 24, Blood Urea Nitrogen 8, Creatinine 0.60, Glomerular Filtration Rate Calc > 60.0, Random Glucose 84, Lactate 1.3, Calcium Level 8.9, Total Bilirubin 0.5, Aspartate Amino Transf (AST/SGOT) 23, Alanine Aminotransferase (ALT/SGPT) 31, Alkaline Brittanie sphatase 46, Total Protein 5.4, Albumin 3.4, Salicylates Level < 10, Salicylate Last Dose Date unk, Acetaminophen Level < 10 Medications (Trade) Dose Ordered Sig/Kiana Route PRN Reason Start Time Stop Time Status Last Admin Dose Admin Ibuprofen (Motrin (*) 200 Mg Tab (Or Equiv)) 400 mg Q6H PRN PO PAIN 02/09/19 22:55 03/11/19 22:54 02/09/19 23:10 Imaging Vital Signs Date Time Temp Pulse Resp B/P (MAP) Pulse Ox O2 Delivery O2 Flow Rate FiO2 02/10/19 05:47 97.6 69 93/62 (72) 96 Room Air 02/09/19 13:10 16 Additional Findings/Notes: Allergies Coded Allergies No Known Allergies (Verified Allergy, Mild, 05/27/13) [facility] Assessment and Plan Zwni-og-Nuct Encounter Date: Feb 10, 2019 Fxhn-[id number] Encounter Time: 09:26 [facility] Plan: Necessary Precautions, Individual/Group Therapy, Admin/Titrate Meds, Educate Patient Multpiple Antipsychotics Used: No Problems: (1) Persistent depressive disorder Optional Permanent Comment: verses major depression Last Edited By: Sim Carreon on Feb 08, 2019 12:41 Status: Chronic (2) Cannabis use disorder, severe, in controlled environment Status: Chronic Condition Review treatment options, discuss outpatient therapy Trial Mirtazapine 7.5 mg po every pm targeting depression, anxiety and sleep Maintain precautions ILA MYLES NP Feb 10, 2019 09:34
[2019-02-10 13:30] VITALS: BP 122/52
[2019-02-10] MEDS ORDERED: MIRTAZAPINE 15 MG TAB PO SCH (21:00)
[2019-02-11 06:48] VITALS: BP 112/64
[2019-02-11] MEDS: MULTIVITAMINS TAB PO SCH (08:57)
[2019-02-11] MEDS ORDERED: MULT-859 PO (09:06)
[2019-02-11] MEDS ORDERED: NIC10R INH (09:07)
--- NOTE | 2019-02-11 09:14 | BHS Progress Note ---
[facility] - Subjective Progress Notes Subjective I'm doing better. I want to get my life back on track." Rating anxiety 2-10/15 Denies depression or thoughts of hurting self Denies anger, mood swings Sleep improved last pm with Remeron, doesn't feel over sedated this am Agrees with continuation of care including medication management and therapy Suicidal Ideation: None Homicidal Ideation: None [facility] - Objective Physical Exam Vital Signs Medications (Trade) Dose Ordered Sig/Kiana Route PRN Reason Start Time Stop Time Status Last Admin Dose Admin Ibuprofen (Motrin (*) 200 Mg Tab (Or Equiv)) 400 mg Q6H PRN PO PAIN 02/09/19 22:55 03/11/19 22:54 02/09/19 23:10 Mirtazapine (Remeron 15 Mg Tab (Or Equiv)) 7.5 mg QHS PO 02/10/19 21:00 03/12/19 20:59 02/10/19 21:32 Allergies Coded Allergies No Known Allergies (Verified Allergy, Mild, 05/27/13) Muscle Strength and Tone: WNL Gait and Station: Steady [facility] Medications Reviewed: Side Effects, Benefits of Medication, Risks Allergies Reviewed: Yes Mental Status Exam General Appearance: Casual, Well Groomed, Good Eye Contact, Cooperative, Polite, Good Interaction; No Unkept, No Tearful, No Psychomotor Agitation, No Psychomotor Retardation, No Bizarre Mannerisms, No Tics Speech: Clear, Spontaneous, Normal Rate, Normal Volume, Normal Tone; No Garbled, No Rambling, No Inappropriate Mood: No Dysthmic/Depressed; Euthymic Affect: Full and Appropriate, Calm; No Sad; Anxious; No Agitated Thought Process: Organized, Logical, Goal Directed, Loose Associations Thought Content: No Suicidal Ideation, No Homicidal Ideation, No Delusions, No Auditory Halllucinations, No Visual Hallucinations, No Thought Broadcasting, No Ideas of Reference, No Obsessions, No Compulsions Sensorium: Clear Cognition: Alert & Oriented-Person, Alert & Oriented-Place, Alert & Oriented- Time, Xtzan-Zoqvjjzw-Gwwsojapy Memory: Immediate, Recent, Remote Intelligence: Average Insight Judgment: Intact, Appropriate; No Poor; Fair Result Diagram: 02/07/19 1103 02/07/19 1103 Imaging Medications (Trade) Dose Ordered Sig/Kiana Route PRN Reason Start Time Stop Time Status Last Admin Dose Admin Ibuprofen (Motrin (*) 200 Mg Tab (Or Equiv)) 400 mg Q6H PRN PO PAIN 02/09/19 22:55 03/11/19 22:54 02/09/19 23:10 Mirtazapine (Remeron 15 Mg Tab (Or Equiv)) 7.5 mg QHS PO 02/10/19 21:00 03/12/19 20:59 02/10/19 21:32 [facility] Assessment and Plan Ipxe-df-Rugk Encounter Date: Feb 11, 2019 Vewx-[id number] Encounter Time: 09:05 [facility] Plan: Necessary Precautions, Individual/Group Therapy, Admin/Titrate Meds, Educate Patient Multpiple Antipsychotics Used: No Problems: (1) Persistent depressive disorder Optional Permanent Comment: verses major depression Last Edited By: Sim Carreon on Feb 08, 2019 12:41 Status: Chronic (2) Cannabis use disorder, severe, in controlled environment Status: Chronic Condition Discharge to home Refer to med reconciliation for medications for discharge Abstain from etoh/illicit substances Crisis line # provided, encourage use for worsening s/s Return to emergency room for suicidal or homicidal ideation ILA MYLES NP Feb 11, 2019 09:14
--- NOTE | 2019-02-12 12:42 | ROMSA DISCHARGE ---
DATE OF ADMISSION: February 07, 2019 DATE OF DISCHARGE: February 11, 2019 ATTENDING PHYSICIAN Xochitl Izaguirre, Psychiatric Mental Health Nurse Practitioner FINAL DIAGNOSES (PER DSM-5) 1. Persistent depressive disorder versus major depressive disorder. 2. Cannibis use disorder. 3. Moderate alcohol abuse upon admission. 4. Unspecified anxiety disorder. REASON FOR ADMISSION/BRIEF HISTORY This patient presented initially to the emergency department with complaint of depression and was intoxicated, reporting taking 40 to 60 Tylenol tablets. He reports stress of relationship and work-related stressors, having drank 6 to 7 shots of alcohol and took the Tylenol overdose in attempt to harm himself. He denied having prior attempts of hurting himself. He had previously been admitted to Behavioral Health for similar actions. He reported he took the Tylenol approximately 40 minutes prior to arrival and did report that if he went home he would shoot himself with a gun. Patient did sign in voluntarily and was transferred to Behavioral Health Unit for further evaluation and treatment. When discharged and stabilized from his admission status when he initially required chemical restraint after being abusive in the emergency department, patient was initially uncooperative and threatening the staff, requiring him to remain in Unit [facility], although stabilized and integrated back into the general population and was cooperative and agreeable with ongoing engagement with providers. Patient was re-started on his mirtazapine 7.5 mg p.o. at bedtime, targeting his depression, anxiety and insomnia. He was agreeable to ongoing outpatient care including medication management and individual psychotherapy. PHYSICAL EXAMINATION Please see emergency room note. Vital signs at the time of admission: Temperature 97.4, pulse 72, blood pressure 129/78, pulse oximetry 95% on room air. Vital signs at the time of discharge: Temperature 98.2, pulse 58, blood pressure 112/64, pulse oximetry 97% on room air. LABORATORY DATA CBC within normal limits. Chemistry panel: Chloride elevated, 110. BUN low, 8. Creatinine low, 0.6. Total protein low, 5.4. Albumin low at 3.4. Toxicology includes salicylate and acetaminophen levels less than 10. Other toxicology including serum alcohol initially at 126. Urine screen negative for opiates, barbiturates, tricyclics, phencyclidine, amphetamines, benzodiazepines, cocaine and positive for cannabinoids, of which he admits to using. MENTAL STATUS EXAMINATION GENERAL APPEARANCE, BEHAVIOR AND ATTITUDE: Patient is calm, cooperative, smiling appropriately with no periods of tearfulness. No psychomotor agitation or retardation. He is interacting well with team members. SPEECH: Regular rate, rhythm, volume and tone. MOOD: Euthymic. AFFECT: Minimally constricted and mood-congruent. THOUGHT PROCESSES: Logical and goal-directed, no loose associations or flight of ideas. THOUGHT CONTENT: Free of auditory or visual hallucinations, ideas of reference, thought broadcastings, delusions, obsessions or compulsions. The patient is denying suicidal or homicidal ideation. SENSORIUM: Clear. COGNITION: Alert and oriented to person, place, time and situation. MEMORY: Immediate, recent and remote intact. INTELLIGENCE: Average, based on interview. INSIGHT AND JUDGMENT: Considered improved as patient is agreeable with ongoing outpatient care including medication management and individual psychotherapy. He denies adamantly any thoughts of hurting himself or others. CONSULTATIONS None. TREATMENT Patient participated in individual and group therapy. Medications were initiated again including Remeron 7.5 mg at h.s. with reported benefit. He is agreeable with ongoing outpatient mental health care. CONDITION OF PATIENT ON DISCHARGE He is stable, considered a minimal risk to himself or others. DISPOSITION Discharge to home. Patient is encouraged to followup with outpatient individual therapy and medication management with appointment [facility] prior to discharge at [facility], appointment established prior to discharge. DISCHARGE MEDICATIONS 1. Multiple vitamin one p.o. daily. 2. Nicotine inhaler as needed for nicotine replacement. 3. Mirtazapine 7.5 mg p.o. at bedtime. Patient is given the Crisis Line number and encouraged use for worsening symptoms. He is encouraged to abstain from alcohol and all illicit substances. Firearms were removed from the home prior to his discharge and this was confirmed. He is to take medications only as prescribed. He is to return to the emergency room for worsening symptoms, suicidal or homicidal ideation. Patient is competent and agreeable with the above discharge plan. SHIRA
== END 2019-02-11 11:05 | disposition home or self-care (01) | DRG 881 ==
LOC: BHS 05:07
PROVIDERS: ADMIT Psychiatry & Neurology Psychiatry; ATTEND Psychiatry & Neurology Psychiatry
DX: F34.1 Dysthymic disorder (principal); R45.851 Suicidal ideations; F12.20 Cannabis dependence, uncomplicated; F10.120 Alcohol abuse with intoxication, uncomplicated; R45.6 Violent behavior; F17.210 Nicotine dependence, cigarettes, uncomplicated; T39.1X2A Poisoning by 4-Aminophenol derivatives, intentional self-harm, initial encounter; Y90.6 Blood alcohol level of 120-199 mg/100 ml; Z81.1 Family history of alcohol abuse and dependence; Z81.8 Family history of other mental and behavioral disorders; Z63.5 Disruption of family by separation and divorce; Z91.5 Personal history of self-harm
CPT/HCPCS: 36415; 80329; 82040; 82247; 82310; 82374; 82435; 82565; 82947; 83605; 84075; 84132; 84155; 84295; 84450; 84460; 84520; 85025; 93005